=== PATIENT | female | born 1960 | race Caucasian/White ===

== ENCOUNTER 2017-03-01 02:26 | Inpatient (IN) | payer BC ==
[~2017-03-01] VITALS: Ht 162.6 cm; Wt 80.5 kg
[2017-03-01] VITALS (38 sets, daily range): BP systolic 121–184; BP diastolic 63–131
--- NOTE | ~2017-03-01 | ST ---
[place], [place] EXERCISE STRESS TEST REPORT NAME: SUSY GOMEZ [facility] #: [id number] UNIT #: [id number] ROOM: [facility] DOCTOR: IVETT VALADEZ,SHAZIA BIRTHDATE: 58 DOS: 03/01/2017 REFERRING PHYSICIAN: Dr. Hector. INDICATION: Anterior chest wall pain. The patient underwent standard protocol Lexiscan stress EKG. The patient's baseline EKG shows sinus bradycardia and nonspecific ST-T wave changes. Heart rate was 56, blood pressure at rest was 108/70. The patient's peak heart rate was 89 with a blood pressure of 116/64. The patient denied any chest pain. The patient had no EKG changes or arrhythmias. SUMMARY OF FINDINGS: Unremarkable Lexiscan stress EKG. Please see separate report for perfusion scan results. SHAZIA ROOT MD CM:STRESS:EXERCISE STRESS TEST REPORT [id number] SHAZIA ROOT MD
[~2017-03-01 02:26] MED LIST: VICODIN 5/500 505 MG PO
[2017-03-01 03:02] LABS: BASO % 0.4 % (0.0-1.0); EOS # 0.3 10*3/uL (0.0-0.4); EOS % 3.2 % (1.0-4.0); HEMATOCRIT 42.7 % (37.0-47.0); HEMOGLOBIN 14.4 g/dl (12.0-16.0); LYMPH # 2.4 10*3/uL (1.3-4.4); LYMPH % 27.5 % (27.0-41.0); MEAN CELL VOLUME 97.7 fl (81.0-99.0); MEAN CORPUSCULAR HGB CONC 33.7 g/dl (33.0-37.0); MEAN PLATELET VOLUME 8.9 fl (9.6-12.3); MONO # 0.6 10*3/uL (0.1-1.0); MONO % 6.5 % (3.0-9.0); NEUT # 5.3 10*3/uL (2.3-7.9); PLATELET COUNT AUTOMATED 333 10*3/uL (130-400); RED BLOOD COUNT 4.37 10*6/uL (4.10-5.10); RED CELL DISTRI WIDTH 13.1 % (0-14.5); WHITE BLOOD COUNT 8.6 10*3/uL (4.8-10.8)
[2017-03-01 03:03] LABS: PROTHROMBIN TIME 10.9 SECONDS (9.0-12.4)
[2017-03-01 03:09] LABS: ALBUMIN 3.5 gm/dl (3.1-4.5); ALKALINE PHOSPHATASE 76 U/L (45-117); BILIRUBIN, TOTAL 0.3 mg/dl (0.2-1.0); BUN 10 mg/dl (7-24); CARBON DIOXIDE 24 mmol/L (21-32); CHLORIDE 110 mmol/L (98-107); EST GLOM FILT AFRICAN AMERICAN > 60 ml/min; GLUCOSE 117 mg/dL (65-99); MAGNESIUM 2.2 mg/dL (1.5-2.1); POTASSIUM 4.2 mmol/L (3.5-5.1); SGOT/AST 9 IU/L (3-35); SGPT/ALT 17 U/L (12-78); SODIUM 145 mmol/L (136-145); TOTAL PROTEIN 6.7 gm/dL (6.4-8.2)
[2017-03-01 03:11] LABS: TROPONIN I < 0.015 ng/ml (<0.045)
[2017-03-01 03:16] LABS: THYROID STIM HORMONE (HS) 2.88 uIU/ml (0.358-4.75)
[2017-03-01 06:08] LABS: CKMB 0.6 ng/ml (0.5-3.6)
[2017-03-01 08:21] LABS: CKMB 0.6 ng/ml (0.5-3.6); PHOSPHOROUS 3.8 mg/dL (2.5-4.9)
[2017-03-01 08:23] LABS: HEMOGLOBIN A1c 5.2 % (4.8-5.6)
[2017-03-01 09:24] LABS: VITAMIN D, 25-HYDROXY 26.3 ng/mL (30-100)
[2017-03-01 09:29] LABS: FOLIC ACID > 24.00 ng/mL (>5.38)
[2017-03-02] VITALS: BP 139/73
[2017-03-02 04:00] VITALS: BP 125/60
[2017-03-02 05:55] LABS: BASO % 0.4 % (0.0-1.0); EOS # 0.2 10*3/uL (0.0-0.4); EOS % 2.3 % (1.0-4.0); HEMOGLOBIN 12.8 g/dl (12.0-16.0); LYMPH # 2.2 10*3/uL (1.3-4.4); LYMPH % 28.6 % (27.0-41.0); MEAN CORPUSCULAR HGB 33.3 pg (27.0-31.0); MEAN CORPUSCULAR HGB CONC 33.7 g/dl (33.0-37.0); MEAN PLATELET VOLUME 9.2 fl (9.6-12.3); MONO # 0.6 10*3/uL (0.1-1.0); MONO % 7.3 % (3.0-9.0); NEUT # 4.8 10*3/uL (2.3-7.9); PLATELET COUNT AUTOMATED 268 10*3/uL (130-400); RED BLOOD COUNT 3.84 10*6/uL (4.10-5.10); RED CELL DISTRI WIDTH 13.2 % (0-14.5); WHITE BLOOD COUNT 7.8 10*3/uL (4.8-10.8)
[2017-03-02 06:07] LABS: ALBUMIN 3.2 gm/dl (3.1-4.5); BILIRUBIN, TOTAL 0.4 mg/dl (0.2-1.0); BUN 9 mg/dl (7-24); CARBON DIOXIDE 27 mmol/L (21-32); CHLORIDE 109 mmol/L (98-107); EST GLOM FILT AFRICAN AMERICAN > 60 ml/min; GLUCOSE 97 mg/dL (65-99); POTASSIUM 3.9 mmol/L (3.5-5.1); SGOT/AST 9 IU/L (3-35); SGPT/ALT 14 U/L (12-78); SODIUM 144 mmol/L (136-145)
[2017-03-02 06:09] LABS: ALKALINE PHOSPHATASE 61 U/L (45-117)
[2017-03-02 08:00] VITALS: BP 142/68
[2017-03-02 12:00] VITALS: BP 114/59
[2017-03-02 16:00] VITALS: BP 132/68
[2017-03-02 20:00] VITALS: BP 139/67
[2017-03-03] VITALS (10 sets, daily range): BP systolic 118–172; BP diastolic 57–82
[2017-03-03] MEDS ORDERED: ACETAMINOPHEN-H1 TA2 PO (18:10)
== END 2017-03-03 18:23 | disposition home or self-care (01) | DRG 417 ==
LOC: ED 02:26 → 5E 05:09 → ICCU 05:09 → EDHOLD 05:09 → ICCU 05:10 → 5E 03-02 10:39
PROVIDERS: Emergency Medicine Emergency Medical Services; Internal Medicine Hospice and Palliative Medicine
PROC: 4A02XM4 Measurement of Cardiac Total Activity, External Approach (ICD-10-PCS; principal; 2017-03-01)
PROC: 0FT44ZZ Resection of Gallbladder, Percutaneous Endoscopic Approach (ICD-10-PCS; 2017-03-03)
DX: K80.01 Calculus of gallbladder with acute cholecystitis with obstruction (principal); J96.00 Acute respiratory failure, unspecified whether with hypoxia or hypercapnia; I16.1 Hypertensive emergency; E83.41 Hypermagnesemia; R00.1 Bradycardia, unspecified; R07.89 Other chest pain; E66.9 Obesity, unspecified; F17.210 Nicotine dependence, cigarettes, uncomplicated; Z82.49 Family history of ischemic heart disease and other diseases of the circulatory system; Z79.899 Other long term (current) drug therapy; Z71.6 Tobacco abuse counseling; Z68.27 Body mass index [BMI] 27.0-27.9, adult; Z88.6 Allergy status to analgesic agent